=== PATIENT | female | born 1960 | race Caucasian/White ===

== ENCOUNTER 2020-06-16 16:00 | Outpatient (REF) | payer BC, SELFPAY ==
[2020-06-16 16:32] LABS: Glucose Urine UA NEG (NEG); Leukocyte Esterase Urine NEG (NEG); Nitrite Urine POS (NEG); PH 6.5 (5.0-8.0); Specific Gravity - Urine 1.025 (1.005-1.025); Urine Blood NEG (NEG); Urine Ketones NEG (NEG); Urine Protein NEG (NEG-TRACE)
[2020-06-16 16:33] LABS: Appearance Urine CLEAR; Color Urine YELLOW
[2020-06-16 16:39] LABS: Bacteria Urine 2+ /LPF; RBC Urine 0 /HPF (0); Squamous Epithelial Cell Urine 3+ /LPF; WBC Urine 0 /HPF (0-4)
== END 2020-06-16 16:01 | disposition home or self-care (01) ==
LOC: HO.LAB 16:00
PROVIDERS: PCP Internal Medicine; Visit Provider Internal Medicine
DX: R82.90 Unspecified abnormal findings in urine (principal); R30.0 Dysuria
CPT/HCPCS: 81001

== ENCOUNTER 2020-12-26 13:46 | Emergency (ER) | payer BC, SELFPAY ==
[2020-12-26 14:09] VITALS: BP 176/82; PULSE 132; RESP 22; TEMP 36.8; O2SAT 98; BMI 29.2
[2020-12-26 17:29] VITALS: BP 181/65; PULSE 122; RESP 16; TEMP 36.8; O2SAT 95
[2020-12-26 17:44] LABS: MANUAL DIFF FLAG NO
[2020-12-26 17:51] LABS: Basophils Percent Auto 0.2 % (0-2); Eosinophils Percent Auto 0.1 % (0-4); Hematocrit 45.2 % (37-47); Hemoglobin 14.7 g/dl (12.0-16.0); Imm Gran Abs Auto 0.04 X10*3/uL (0.00-0.03); Imm Gran Pct Auto 0.3 % (0.0-0.4); Lymphocytes Percent Auto 15.6 % (20-40); Mean Corpuscular HGB Conc 32.5 g/dl (31.0-35.0); Mean Corpuscular Hemoglobin 29.2 pg (27.0-33.0); Mean Corpuscular Volume 89.7 fL (80-98); Mean Platelet Volume 9.3 fL (9.4-12.3); Monocytes Absolute Auto 0.6 X10*3/uL (0.1-1.2); Monocytes Percent Auto 4.8 % (2-11); Platelet Count 297 X10*3/uL (160-400); Red Blood Count 5.04 X10*6/uL (4.20-5.50); Red Cell Distribution Width 12.7 % (11.0-16.0); White Blood Count 12.7 X10*3/uL (4.8-10.8)
[2020-12-26 18:07] LABS: Anion Gap 15 (12-20); Blood Urea Nitrogen 17 mg/dL (9-16); Calcium 10.2 mg/dL (8.4-10.2); Carbon Dioxide 20 mmol/L (22-29); Chloride 107 mmol/L (96-108); Creatinine Clr Calc Pharmacy 81.1; Estimated Glomerular Filt Rate > 60; Glucose Random 107 mg/dL (60-115); Sodium 138 mmol/L (135-145)
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
--- NOTE | 2020-12-26 19:24 | ECG_ITS ---
Test Reason : TACHY Blood Pressure : / mmHG Vent. Rate : 122 BPM Atrial Rate : 122 BPM P-R Int : 152 ms QRS Dur : 084 ms QT Int : 326 ms P-R-T Axes : 065 019 057 degrees QTc Int : 464 ms Sinus tachycardia Possible Left atrial enlargement Borderline ECG When compared with ECG of 07-FEB-2018 14:09, No significant change was found Referred By: Waleska Simpson Electronically Signed By:ELLIE FUNG MD
[2020-12-26 19:26] VITALS: BP 165/93; PULSE 137; RESP 16; TEMP 36.8; O2SAT 96
[2020-12-26 19:43] VITALS: BP 135/103; PULSE 121; RESP 14; TEMP 36.5; O2SAT 96
[2020-12-26] MEDS: LORazepam 1 MG TABLET PO (19:45)
[2020-12-26 19:50] LABS: Glucose Urine UA NEG (NEG); Leukocyte Esterase Urine NEG (NEG); Nitrite Urine NEG (NEG); PH 5.5 (5.0-8.0); Urine Blood NEG (NEG); Urine Ketones NEG (NEG); Urine Protein NEG (NEG-TRACE)
[2020-12-26 19:52] LABS: Appearance Urine CLEAR; Color Urine YELLOW
[2020-12-26 20:04] LABS: Ethanol < 10 mg/dL
--- NOTE | 2020-12-26 20:10 | PC.NURSE ---
Pt rang call avery to inform this RN that she feels anxious and believes her HR is elevated. Pt's HR is consistent in 120s, pt remains ST on cardiac specialist. Verbal reassurance provided. Pt agreeable to CT once ativan has taken effect.
[2020-12-26 20:13] LABS: Troponin-I High Sensitivity 4.3 ng/L (<3.5-17.0)
[2020-12-26 20:24] LABS: Amphetamine Screen Urine Not Detected (Not Detect); Barbiturates, Urine Not Detected (Not Detect); Benzodiazepines Screen Urine Not Detected (Not Detect); Cannabinoid Screen Urine Not Detected (Not Detect); Cocaine Screen Urine Not Detected (Not Detect); Opiate Screen Urine Not Detected (Not Detect); Phencyclidine Screen Urine Not Detected (Not Detect)
--- NOTE | 2020-12-26 20:25 | PC.NURSE ---
instructor of sociology came to this RN to report that the patient does not want the head CT. Provider aware and at bedside. Will update primary RN
[2020-12-26 20:31] VITALS: BP 163/67; PULSE 106; RESP 17; O2SAT 98
[2020-12-26] MEDS: LORazepam 0.5 MG TABLET PO (20:38)
--- NOTE | 2020-12-26 20:51 | PC.NURSE ---
Pt ambulatory with steady gait to bathroom prior to DC. Pt denies c/o dizziness at time of DC stating I only have a very small headache which this next dose of ativan might help but I have tylenol at home if not. Pt reports headache has decreased in severity since arrival and since receiving first dose of ativan. Pt expresses understanding of DC teaching and understands that provider and this RN recommend head CT which pt is refusing today.
== END 2020-12-26 20:42 | disposition home or self-care (01) ==
PROVIDERS: Nurse Practitioner Family; Emergency Provider Internal Medicine; PCP Internal Medicine
DX: F41.9 Anxiety disorder, unspecified (principal); F41.1 Generalized anxiety disorder; F43.0 Acute stress reaction; R11.10 Vomiting, unspecified; Z79.899 Other long term (current) drug therapy
CPT/HCPCS: 36415; 80048; 80307; 80320; 81003; 84484; 85025; 93005; 99284; 99285

== ENCOUNTER → 2021-03-23 13:44 | Outpatient (REF) | payer BC, SELFPAY ==
--- NOTE | 2021-03-23 13:48 | CA_ITS ---
Transthoracic Echocardiogram Patient (Last, First, Middle): Mishel Mcintyre Jean Gender: Female Date of : 1960 Age: 60 Procedure Date: 03/23/2021 Procedure Type: Transthoracic Echocardiogram Location: OP Height: 162.56 cm Weight: 77.11 kg BSA: 1.83 m2 Heart Rate: bpm BP: 120 / 86 mmHg [employer] Manager: MELL/KESHAWN Referring MD: Lars Morillo MD Electric Solderer: Loc Laughlin MD Symptoms: R00.0 - Tachycardia, unspecified Study Quality: Fair ECG Rhythm: Sinus Conclusions: - Essentially normal study Findings Left Ventricle Normal left ventricular size, thickness, and systolic function. The visually estimated ejection fraction is between 60-65%. Diastolic function is normal for age. Right Ventricle Normal right ventricular cavity size and systolic function. Atria Both atria are normal in size. There is no evidence of interatrial shunt. Aortic Valve Normal aortic valve structure and function. There is no aortic valve stenosis. There is no aortic valve regurgitation. Mitral Valve Normal mitral valve structure and function. There is trace mitral valve regurgitation. There is no mitral valve stenosis. Pulmonic Valve The pulmonic valve is likely normal. Tricuspid Valve Normal tricuspid valve structure. Tricuspid regurgitation envelope is inadequate for calculation of right ventricular systolic pressure. Great Vessels All visible segments of the aorta are normal in size. The pulmonary artery was not well visualized. Venous The inferior vena cava is normal in size and collapses greater than 50% with inspiration. Pericardium/Pleural There is no evidence of pericardial effusion. Prior Study Comparison Changes noted compared to prior study dated: 11/16/2016. LV diastolic function appears to be normal on this study Measurements 2D Linear Measurements IVSd: 0.95 0.6-0.9/0.6-1.0 cm LVIDd: 5.39 3.9-5.3/4.2-5.9 cm LVIDd Index: 2.95 2.4-3.2/2.2-3.1 cm/m2 LVIDs: 3.21 2.0-3.6 cm LVPWd: 0.83 0.7-1.1 cm Ao Root: 3.70 2.1-3.5 cm LA Diam: 3.40 2.7-3.8/3.0-4.0 cm LAIDs Index: 1.86 1.5-2.3 cm/m2 LV Mass: 220.81 67-162/88-224 g LV Mass Index: 120.66 43-95/49-115 g/m2 LVOT Diam: 2.10 3.0+(-)1.3 cm 2D Systolic Function EF 4C: 61.90 >55% EF 2C: 64.60 >55% EF BiP: 64.60 >55% Mitral Valve MV Pk E: 0.87 MV PK A: 0.71 MV Decel Time: 224.00 E/A: 1.20 E'Lateral: 8.70 E'Medial: 6.96 E/E' Med: 12.50 E/E' Lat: 10.00 PHT: 65.00 MVA PHT: 3.38 Decel [place]: 3.89 Aortic Valve AoV Pk [place]: 1.03 AoV Mn [place]iago: 0.75 AoV VTI: 0.19 AoV Pk Grad: 4.00 Aov Mn Grad: 3.00 RAFAEL Cont.VTI: 4.08 LVOT LVOT Pk [place]: 1.02 LVOT Mn [place]: 0.72 LVOT VTI: 0.22 LVOT Pk Grad: 4.00 LVOT Mn Grad: 2.00 LVOT Diam: 2.10 LVOT Area: 3.46 Diastolic Function MV Pk E: 0.87 MV Pk A: 0.71 E/A: 1.20 E'Medial: 6.96 E/E' Med: 12.50 E' Laterial: 8.70 E/E' Lat: 10.00 Tricuspid Valve RA Press: 3.00 Great Vessels Aorta Ao Root-2D: 3.70 2.0-3.7 cm Ao Asc: 3.70 2.1-3.4 cm Ao Arch: 2.60 Updated in Other Vendor System with Status of Final Loc Laughlin MD electronically signed on 03/24/2021 3:13:56 PM with status of Final
== END ==
LOC: HO.CARD 13:44
PROVIDERS: PCP Internal Medicine; Visit Provider Internal Medicine
DX: R00.0 Tachycardia, unspecified (principal)
CPT/HCPCS: 93306

== ENCOUNTER 2021-11-13 14:29 | Outpatient (REF) | payer BC, SELFPAY ==
[2021-11-13 14:50] LABS: MANUAL DIFF FLAG NO
[2021-11-13 15:22] LABS: Basophils Percent Auto 0.5 % (0-2); Eosinophils Absolute Auto 0.1 X10*3/uL (0.0-0.4); Eosinophils Percent Auto 1.2 % (0-4); Hematocrit 44.2 % (37.0-47.0); Hemoglobin 13.9 g/dl (12.0-16.0); Imm Gran Abs Auto 0.03 X10*3/uL (0.00-0.03); Imm Gran Pct Auto 0.3 % (0.0-0.4); Lymphocytes Absolute Auto 3.4 X10*3/uL (1.2-4.9); Lymphocytes Percent Auto 39.1 % (20-40); Mean Corpuscular HGB Conc 31.4 g/dl (31.0-35.0); Mean Corpuscular Hemoglobin 28.4 pg (27.0-33.0); Mean Corpuscular Volume 90.4 fL (80.0-98.0); Mean Platelet Volume 9.1 fL (9.4-12.3); Monocytes Absolute Auto 0.5 X10*3/uL (0.1-1.2); Monocytes Percent Auto 6.3 % (2-11); Neutrophils Absolute Auto 4.5 x10*3/uL (2.0-8.3); Neutrophils Percent Auto 52.6 % (45-73); Platelet Count 297 X10*3/uL (160-400); Red Blood Count 4.89 X10*6/uL (4.20-5.50); Red Cell Distribution Width 13.2 % (11.0-16.0); White Blood Count 8.6 X10*3/uL (4.8-10.8)
[2021-11-13 15:45] LABS: Alanine Aminotransferase 23 U/L (0-31); Albumin Level 4.1 g/dL (3.5-5.0); Alkaline Phosphatase 99 U/L (39-117); Anion Gap 12 (12-20); Aspartate Amino Transferase 16 U/L (5-31); Bilirubin Total 0.3 mg/dL (0.0-1.0); Blood Urea Nitrogen 10 mg/dL (9-16); Calcium 9.3 mg/dL (8.4-10.2); Carbon Dioxide 26 mmol/L (22-29); Chloride 107 mmol/L (96-108); Cholesterol 230 mg/dL; Estimated Glomerular Filt Rate > 60; Glucose Fasting 94 mg/dL (60-99); HDL Cholesterol 51 mg/dL; LDL Cholesterol Calculated 136 mg/dl; Sodium 141 mmol/L (135-145); Total Protein 7.6 g/dL (6.5-8.0); Triglycerides 216 mg/dL
[2021-11-13 16:06] LABS: Free T4 (Free Thyroxine) 1.08 ng/dL (0.71-1.85); Thyroid Stimulating Hormone 0.75 uIU/mL (0.32-4.0)
[2021-11-13 16:08] LABS: Appearance Urine CLEAR; Color Urine YELLOW; Glucose Urine UA NEG (NEG); Leukocyte Esterase Urine TRACE (NEG); Nitrite Urine NEG (NEG); PH 5.5 (5.0-8.0); Specific Gravity - Urine 1.025 (1.005-1.025); UACC Culture Trigger YES; Urine Blood NEG (NEG); Urine Ketones NEG (NEG); Urine Protein NEG (NEG-TRACE)
[2021-11-13 16:30] LABS: Bacteria Urine 4+ /LPF; RBC Urine 0 /HPF (0); Squamous Epithelial Cell Urine 1+ /LPF
== END 2021-11-13 14:30 | disposition home or self-care (01) ==
LOC: HO.LAB 14:29
PROVIDERS: PCP Internal Medicine; Visit Provider Internal Medicine
DX: I10 Essential (primary) hypertension (principal); R35.0 Frequency of micturition; E78.9 Disorder of lipoprotein metabolism, unspecified; E04.1 Nontoxic single thyroid nodule; E66.3 Overweight; R00.0 Tachycardia, unspecified; E78.5 Hyperlipidemia, unspecified; K21.9 Gastro-esophageal reflux disease without esophagitis
CPT/HCPCS: 36415; 80053; 80061; 81001; 81003; 84439; 84443; 85025; 87086; 87088; 87186

== ENCOUNTER 2022-03-19 | Outpatient (REF) | payer OTHER, SELFPAY | END 2022-03-19 00:01 | disposition home or self-care (01) | LOC: HO.LAB | PROVIDERS: PCP Internal Medicine; Visit Provider Internal Medicine | DX: Z13.89 Encounter for screening for other disorder (principal) ==

== ENCOUNTER 2022-03-29 11:55 | Outpatient (REF) | payer OTHER, SELFPAY ==
[2022-03-29 12:53] LABS: Appearance Urine CLEAR; Color Urine YELLOW; Glucose Urine UA NEG (NEG); Leukocyte Esterase Urine TRACE (NEG); Nitrite Urine NEG (NEG); UACC Culture Trigger NO; Urine Blood TRACE (NEG); Urine Ketones NEG (NEG); Urine Protein NEG (NEG-TRACE)
[2022-03-29 13:16] LABS: UACC CULT YES
[2022-03-29 13:17] LABS: Bacteria Urine 2+ /LPF; Squamous Epithelial Cell Urine 1+ /LPF
[2022-03-29 13:49] LABS: Alanine Aminotransferase 21 U/L (0-31); Albumin Level 4.1 g/dL (3.5-5.0); Alkaline Phosphatase 88 U/L (39-117); Anion Gap 12 (12-20); Aspartate Amino Transferase 14 U/L (5-31); Bilirubin Total 0.4 mg/dL (0.0-1.0); Blood Urea Nitrogen 10 mg/dL (9-16); Calcium 9.1 mg/dL (8.4-10.2); Carbon Dioxide 25 mmol/L (22-29); Chloride 106 mmol/L (96-108); Cholesterol 216 mg/dL; Estimated Glomerular Filt Rate > 60; Glucose Fasting 103 mg/dL (60-99); HDL Cholesterol 56 mg/dL; LDL Cholesterol Calculated 124 mg/dl; Potassium 4.1 mmol/L (3.3-5.1); Sodium 139 mmol/L (135-145); Triglycerides 182 mg/dL
[2022-03-29 14:11] LABS: TSH reflex Free T4 0.85 uIU/mL (0.32-4.0); Vitamin D 25-OH Total 16.3 ng/mL (>30)
== END 2022-03-29 11:56 | disposition home or self-care (01) ==
LOC: HO.LAB 11:55
PROVIDERS: Absent Provider Internal Medicine; PCP Internal Medicine; Visit Provider Internal Medicine
DX: R30.0 Dysuria (principal); E78.00 Pure hypercholesterolemia, unspecified; E55.9 Vitamin D deficiency, unspecified
CPT/HCPCS: 36415; 80053; 80061; 81001; 82306; 84443; 87086

== ENCOUNTER 2022-05-18 17:49 | Outpatient (REF) | payer OTHER, SELFPAY | END 2022-05-18 17:50 | disposition home or self-care (01) | LOC: HO.LNP 17:49 | PROVIDERS: Visit Provider Internal Medicine | DX: N39.0 Urinary tract infection, site not specified (principal); E04.1 Nontoxic single thyroid nodule | CPT/HCPCS: 87086; 87088; 87186 ==

== ENCOUNTER 2022-11-06 13:43 | Outpatient (REF) | payer OTHER, MEDICAID, SELFPAY ==
--- NOTE | ~2022-11-06 | US_ITS ---
EXAMINATION: US THYROID CLINICAL INFORMATION: Nontoxic single thyroid nodule. COMPARISON: Ultrasound thyroid 03/13/2012. TECHNIQUE: Linear transducer grayscale and color Doppler examination with attention to the region of the thyroid. FINDINGS: SIZE: Measurements of the thyroid lobes and nodules are given in sagittal, anteroposterior and transverse dimensions respectively. Right Thyroid Lobe: 6.0 x 3.5 x 3.4 cm, volume 37.1 mL. Previously 3.3 x 5.7 x 3.4 cm, volume 33.4 mL. Parenchyma: The gland echotexture is heterogeneous. Thyroid vascularity is normal. Left Thyroid Lobe: 4.7 x 1.6 x 1.4 cm, volume 5.6 mL. Previously 1.4 x 4.7 x 1.3 cm, volume 4.5 mL. Parenchyma: The gland echotexture is heterogeneous. Thyroid vascularity is normal. Isthmus: 0.48 cm in maximum AP dimension. Previously 0.30 cm. Estimated total number of nodules greater than or equal to 1 cm: 2. Bid Analyst nodules are described as follows: 1. Location: Isthmus. Size: 2.2 x 1.7 x 1.9 cm, volume 3.9 mL. Previously: Not documented on the previous study. Nodule characteristics: Composition: Solid/almost completely solid (2). Echogenicity: Hypoechoic (2). Shape: Not taller than wide (0). Margins: Smooth (0). Echogenic Foci: None (0). ACR TI-RADS total points: 4 ACR TI-RADS category: 4 2. Location: Right inferior/mid. Size: 3.9 x 3.4 x 3.4 cm, volume 23.4 mL. Previously: 3.2 x 3.7 x 3.0 cm, volume 18.6 mL. Nodule characteristics: Composition: Mixed cystic and solid (1). Echogenicity: Hypoechoic (2). Shape: Not taller than wide (0). Margins: Smooth (0). Echogenic Foci: Punctate echogenic foci (3). ACR TI-RADS total points: 6 ACR TI-RADS category: 4 Significant change in size (>/= 20% in 2 dimensions and minimal increase of 2 mm or 50% or greater increase in volume): No Change in features: No Change in ACR TI-RADS risk category: No 3. Location: Right mid. Size: 0.85 x 0.52 x 0.90 cm, volume 0.21 mL. Previously: Not documented on the previous study. Nodule characteristics: Composition: Spongiform (0). Echogenicity: Anechoic (0). Shape: Not taller than wide (0). Margins: Smooth (0). Echogenic Foci: None (0). ACR TI-RADS total points: 0 ACR TI-RADS category: 1 4. Location: Left mid. Size: 0.27 x 0.28 x 0.35 cm, volume 0.01 mL. Previously: Not documented on the previous study. Nodule characteristics: Composition: Cystic(0). ACR TI-RADS total points: 0 ACR TI-RADS category: 1 NODES: No lymphadenopathy is seen in the tissue surrounding the thyroid gland. US/US thyroid IMPRESSION: Multiple thyroid nodules with dominant nodules identified. Nodules #1 and #2 are both appropriate for fine-needle aspiration. The remaining demonstrated nodules are cystic and require no specific follow-up. ACR TI-RADS RECOMMENDATION REFERENCE: Ultrasound-guided fine-needle aspiration, followup ultrasound, no further follow up. * TR1 (0 point) and TR2 (2 points): No FNA or follow up. * TR3 (3 points): FNA if more than or equal to 2.5 cm in maximum dimension, followup ultrasound in 1, 3 and 5 years if 1.5 to 2.4 cm in maximum dimension. * TR4 (4-6 points): FNA if more than or equal to 1.5 cm in maximum dimension, followup ultrasound in 1, 2, 3 and 5 years if 1 to 1.4 cm in maximum dimension. * TR5 (more than or equal to 7 points): FNA if more than or equal to 1 cm in maximum dimension, followup ultrasound every year for 5 years if 0.5 to 0.9 cm in maximum dimension. * TR3, TR4 or TR5 nodules that are below the size threshold for followup receive no follow up.
== END 2022-11-06 13:44 | disposition home or self-care (01) ==
LOC: HO.HMGCX 13:43
PROVIDERS: PCP Internal Medicine; Visit Provider Internal Medicine
DX: E04.1 Nontoxic single thyroid nodule (principal)
CPT/HCPCS: 76536

== ENCOUNTER 2023-01-16 13:38 | Outpatient (REF) | payer OTHER, SELFPAY ==
[2023-01-16 17:07] LABS: Free T4 (Free Thyroxine) 0.99 ng/dL (0.71-1.85); Thyroid Stimulating Hormone 0.76 uIU/mL (0.32-4.0)
[2023-01-18 11:24] LABS: Triiodothyronine T3 Total 114 ng/dL (76-181)
[2023-01-18 22:04] LABS: Thyroid Peroxidase Antibodies 313 IU/mL (<9)
[2023-01-19 07:28] LABS: Thyroglobulin Antibodies >1000 IU/mL (< or = 1)
[2023-01-22 16:52] LABS: Thyrotropin Receptor Antibody <1.00 IU/L (<=2.00)
[2023-01-23 15:48] LABS: Thyroid Stimulating Immunoglob <89 % baseline (<140)
== END 2023-01-16 13:39 | disposition home or self-care (01) ==
LOC: HO.LAB 13:38
PROVIDERS: PCP Internal Medicine; Visit Provider Internal Medicine
DX: E04.2 Nontoxic multinodular goiter (principal)
CPT/HCPCS: 36415; 83520; 84439; 84443; 84445; 84480; 86376; 86800; 99202

== ENCOUNTER 2023-03-20 12:51 | Outpatient (REF) | payer OTHER, MEDICAID, SELFPAY ==
--- NOTE | ~2023-03-20 | CT_ITS ---
EXAMINATION: CT SOFT TISSUE NECK WITHOUT CONTRAST CLINICAL INFORMATION: Nontoxic multinodular goiter. COMPARISON: Thyroid ultrasound. TECHNIQUE: Multidetector helical imaging was performed in the axial plane without intravenous contrast. Multiple axial reformats and coronal/sagittal reconstructions were created the technologist workstation for review. This CT examination was performed using dose optimization techniques as appropriate, variously including the following: *Automated exposure control. *Adjustment of mA and/or kV according to patient size (this includes techniques or standardized protocols for targeted exams where dose is matched to indication/reason for exam; i.e. extremities or head). *Use of iterative reconstruction technique. DLP: 583 mGy-cm FINDINGS: Redemonstrated peripherally calcified heterogeneous largely cystic lesion along the inferior pole of the right thyroid lobe, measuring up to 4 x 3.2 x 2.8 cm. There is also a heterogeneously hypoattenuating lesion along the inferior aspect of the thyroid isthmus, measuring up to 1.7 x 1.5 x 1.9 cm. No significant cutaneous thickening or subcutaneous inflammation. No discrete fluid collection within the deep tissues of the neck. The premaxillary, retromaxillary, pterygopalatine fossa, orbital apical, parapharyngeal, and prelaryngeal adipose tissue is maintained. Normal appearance of the parotid, submandibular, and thyroid glands. Scattered subcentimeter lymph nodes bilaterally, none of which are pathologically enlarged. Normal mucosal contours of the pharynx and larynx. Normal appearance of the hyoid bone, thyroid cartilage, or cartilaginous trachea. The airways remains widely patent. No radiopaque foreign bodies. The atlantooccipital and atlantoaxial articulations remain well aligned. Mild reversal the normal cervical lordosis. Minimal degenerative anterolisthesis of C3 on C4. No evidence of acute fracture or subluxation of the cervical spine. The vertebral body heights are maintained. Moderate degenerative disc disease from C4-C7. Facet and uncovertebral joint arthropathy leads to osseous encroachment on the neural foramina from C3-C7. There is no prevertebral soft tissue swelling. The visualized portion of the skull base is without significant abnormalities. Mild mucosal thickening of the paranasal sinuses. The mastoid air cells and middle ear cavities are clear. No demonstrated significant periapical odontogenic disease. CT Upper Chest: The visualized lung apices and upper mediastinum are within normal limits. CT/CT soft tissue neck wo IV con IMPRESSION: 1. Redemonstrated 4 cm peripherally calcified heterogeneous lesion along the inferior pole of the right thyroid lobe. There is also a 1.9 cm heterogeneously hypoattenuating lesion along the inferior aspect of the thyroid isthmus. Recommend follow-up with fine-needle aspiration as recommended by prior ultrasound. 2. No additional focal lesion, collection, or pathologically enlarged lymphadenopathy within the soft tissues of the neck. 3. 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
[2023-03-20 15:38] LABS: Appearance Urine Cloudy; Color Urine Dark Yellow; Glucose Urine UA Negative (Negative); Leukocyte Esterase Urine Trace (Negative); Nitrite Urine Negative (Negative); PH 5.5 (5.0-9.0); Specific Gravity - Urine >= 1.030 (1.005-1.025); UMIC TRIGGER UACC YES; Urine Blood Negative (Negative); Urine Ketones Trace mg/dL (Negative); Urine Protein 30 (1+) mg/dL (Neg-Trace)
[2023-03-20 15:56] LABS: Bacteria Urine 1+ (None Seen); Hyaline Casts Urine 0-2 /LPF (0-2); RBC Urine 0-2 /HPF (0-2); WBC Urine 0-5 /HPF (0-5)
[2023-03-21 02:48] LABS: Alanine Aminotransferase 20 U/L (0-31); Albumin Level 3.8 g/dL (3.5-5.0); Alkaline Phosphatase 84 U/L (39-117); Anion Gap 14 (12-20); Aspartate Amino Transferase 22 U/L (5-31); Bilirubin Total 0.3 mg/dL (0.0-1.0); Blood Urea Nitrogen 22 mg/dL (9-16); Calcium 8.9 mg/dL (8.4-10.2); Carbon Dioxide 20 mmol/L (22-29); Chloride 109 mmol/L (96-108); Cholesterol 208 mg/dL; Estimated Glomerular Filt Rate > 60; Glucose Fasting 131 mg/dL (60-99); HDL Cholesterol 48 mg/dL; LDL Cholesterol Calculated 121 mg/dl; Potassium 4.5 mmol/L (3.3-5.1); Sodium 138 mmol/L (135-145); Total Protein 7.1 g/dL (6.5-8.0); Triglycerides 196 mg/dL
== END 2023-03-20 12:52 | disposition home or self-care (01) ==
LOC: HO.CT 12:51
PROVIDERS: Internal Medicine; Absent Provider Internal Medicine; PCP Internal Medicine; Visit Provider Internal Medicine
DX: E04.2 Nontoxic multinodular goiter (principal); E78.00 Pure hypercholesterolemia, unspecified
CPT/HCPCS: 36415; 70490; 80053; 80061; 81001

== ENCOUNTER 2023-03-25 13:06 | Outpatient (AMB) | payer OTHER, SELFPAY ==
[2023-03-25 13:17] VITALS: BP 140/90; PULSE 98; BMI 32.8
--- NOTE | 2023-03-25 13:17 | A.OFFVIS_ITS ---
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 Intake Note: NPV w/ EKG Establishment Guide Required: No Accompanied by: Self / Same As Patient Allergies No Known Allergies [No Known Allergies*] Allergy (Verified 03/25/23 13:19) Medication List - Last Reconciled 03/25/23 by Kei Kennedy MD albuterol sulfate 90 mcg/actuation (ProAir HFA) 2 puffs inhalation Q6H PRN fesoterodine ER (Toviaz) 4 mg PO DAILY fluticasone propionate 110 mcg/actuation (Flovent HFA) 1 puff inhalation BID lorazepam 1 mg PO BID PRN 30 days losartan 100 mg PO DAILY 90 days metoprolol tartrate 25 mg PO BID mirtazapine 15 mg PO BEDTIME 90 days omeprazole 40 mg PO DAILY 90 days ondansetron 4 mg PO Q8H PRN 15 days HPI HPI Comments History of Present Illness Details Mishel Taylor is here for consultation regarding palpitations. She states that she gets episodes of heart racing at random times. All times, that happens when she is anxious. However, she is not entirely sure if it is just anxiety if there is something else going on. Hence she has been referred. Otherwise, patient states that she lost her and he had lung cancer. After that, palpitations are worse. Patient has a lot of anxiety at baseline and hence not clear if her palpitations or if any arrhythmias. [facility] Medical History Anxiety Benign essential hypertension Dyslipidemia GERD (gastroesophageal reflux disease) Mixed hyperlipidemia Multinodular thyroid Overweight (BMI 25.0-29.9) Reactive airway disease Tachycardia Thyroid nodule Urinary frequency Surgical History History of kidney surgery History of surgery Family History Father CAD (coronary artery disease) CVD (cerebrovascular disease) Mother CVD (cerebrovascular disease) Diabetes Hypertension Maternal Grandmother Alzheimers disease Maternal Grandfather CAD (coronary artery disease) Paternal Grandmother CAD (coronary artery disease) Maternal Aunt Ovarian cancer Maternal Uncle Colon cancer Sister Kidney failure, acute Other Mental health problem Social History Housing: House Alcohol intake: current Alcohol intake frequency: holidays/special occasions only Patient Tobacco Use Status: Never used Tobacco e-Cigarette/Vaping Use: Never Used Second Hand Smoke Exposure: Yes service: No Current occupational status: employed 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 Cognitive needs: No Hearing needs: No Vision needs: Yes Review of Systems Const Denies chills, Denies daytime sleepiness, Denies fatigue, Denies fever(s), Denies frequent falls, Denies night sweats, Denies snoring, Denies weakness, Denies weight gain and Denies weight loss Eyes Denies loss of vision ENT Denies dizziness and Denies hearing loss Card Denies chest pain, Denies chest pain with activity, Denies syncope, Denies rapid heart rate, Denies edema, Denies claudication, Denies leg edema, Denies lightheadedness, Denies palpitations, Denies dyspnea, Denies dyspnea on exertion and Denies orthopnea Resp Denies cough, Denies excessive phlegm production, Denies dyspnea, Denies dyspnea on exertion, Denies snoring and Denies wheezing GI Denies abdominal pain, Denies hematochezia, Denies change in bowel habits, Denies change in stool character, Denies heartburn, Denies nausea and Denies vomiting Denies hematuria, Denies urinary frequency and Denies dysuria Musc Denies arthralgias, Denies muscle weakness, Denies numbness and Denies tingling Skin/Breast Denies nail changes and Denies rash Neuro Denies Abnormal speech present, Denies dizziness, Denies syncope, Denies frequent falls, Denies loss of vision, Denies memory loss, Denies numbness, Denies tingling and Denies weakness Psych Denies depression and Denies memory loss Endo Denies fatigue and Denies palpitations Aller/Immun Denies wheezing Physical Exam Vital Signs: Last Vital Signs Pulse 98 03/25/23 13:17 BP 140/90 H 03/25/23 13:17 BMI result Body Mass Index 32.8 Const General: comfortable and no acute distress Orientation/consciousness: patient oriented x3 HEENT Other: Unremarkable Head: Yes normal to inspection Neck Neck: Yes normal visual inspection Chest Chest palpation & inspection: normal inspection of the chest Resp Auscultation: clear to auscultation bilaterally Cardio Palpation: normal PMI Heart sounds: S1 normal heart sound present, S2 normal heart sound present, no gallops, no murmurs and no rubs GI Palpation (GI): Soft to palpation Back/Spine/Pelvis Other: unremarkable Skin General skin exam: no rashes or lesions noted Neuro General: patient oriented x3 Speech: No Abnormal speech present Extrem General: Yes normal to inspection Psych Mental Status: mental status grossly normal Office Procedures EKG Details: EKG with sinus rhythm at 98/Min; nonspecific ST-T changes; [place] [address]-[id number], Complete Assessment & Plan Assessment & Plan (1) Heart palpitations: Code(s): R00.2 - Palpitations (2) Tachycardia: Code(s): R00.0 - Tachycardia, unspecified (3) Benign essential hypertension: Code(s): I10 - Essential (primary) hypertension Plan We will do an echocardiogram and Holter for further evaluation. Based on vital signs, it seems she does have a lot of tachycardia. Not sure if it is all anxiety or arrhythmias. Holter should give us more information. Blood pressure is borderline high, but she states home blood pressures are much lower. Follow-up in a few weeks time. Orders: Orders CA echo transthoracic complete Today R00.0 - Tachycardia, unspecified ECG 7 day holter monitor Today R00.0 - Tachycardia, unspecified, R00.2 - Palpitations Medications: Changed From fesoterodine ER (Toviaz) 4 mg PO DAILY 90 days 90 tabs 1RF N32.81 - Overactive bladder To fesoterodine ER (Toviaz) 4 mg PO DAILY N32.81 - Overactive bladder Coding Level of Care Code New Pt Level 3 (62609) Diagnoses Heart palpitations R00.2 Tachycardia R00.0 Benign essential hypertension I10 CPT Codes EKG - CPT: 45578-[id number], Complete ([id number])
== END 2023-03-25 13:44 | disposition home or self-care (01) ==
PROVIDERS: Visit Provider Internal Medicine
DX: R00.2 Palpitations (principal); R00.0 Tachycardia, unspecified; I10 Essential (primary) hypertension
CPT/HCPCS: 93010; 99203; 99213

== ENCOUNTER → 2023-03-25 13:06 | Outpatient (BNVA) | payer OTHER, MEDICAID, SELFPAY | PROVIDERS: Visit Provider Internal Medicine | DX: R00.2 Palpitations (principal); R00.0 Tachycardia, unspecified; I10 Essential (primary) hypertension | CPT/HCPCS: 93005; 99202 ==

== ENCOUNTER → 2023-04-22 15:11 | Outpatient (REF) | payer OTHER, SELFPAY ==
--- NOTE | 2023-04-22 15:13 | HM_ITS ---
* Total monitoring time 4 days and 12 hours. * Underlying rhythm is sinus. Average ventricular rate 73/Min. Range 52 to 131/Min. * Very rare supraventricular ectopy. * No sustained arrhythmias. * No significant pauses or AV blocks. * No patient markers or events in diary. MTDD
== END ==
LOC: HO.CARD 15:11
PROVIDERS: PCP Internal Medicine; Visit Provider Internal Medicine
DX: R00.2 Palpitations (principal); R00.0 Tachycardia, unspecified
CPT/HCPCS: 93242

== ENCOUNTER → 2023-04-22 15:13 | Outpatient (BNV) | payer OTHER, SELFPAY | PROVIDERS: PCP Internal Medicine; Visit Provider Internal Medicine | DX: I47.1 Supraventricular tachycardia (principal) | CPT/HCPCS: 93244 ==

== ENCOUNTER 2023-06-23 17:18 | Emergency (ER) | payer OTHER, MEDICAID, SELFPAY ==
--- NOTE | ~2023-06-23 | XR_ITS ---
EXAMINATION: XR CHEST CLINICAL INFORMATION: Chest pain. COMPARISON: Soft tissue neck CT 03/20/2023. Chest x-ray 11/15/2016. TECHNIQUE: Frontal view of the chest was obtained. FINDINGS: The cardiomediastinal silhouette is within normal limits. No vascular congestion or edema. The lungs are well expanded. No consolidation or effusion. There is leftward deviation of the cervical trachea related to a thinly calcified nodule. On recent CT scan this is consistent with a peripherally calcified thyroid nodule. The radiographic appearance is unchanged. Degenerative changes in the shoulders. XR/XR chest 1V IMPRESSION: No acute cardiopulmonary findings.
--- NOTE | 2023-06-23 17:21 | ECG_ITS ---
Test Reason : CHEST PAIN Blood Pressure : / mmHG Vent. Rate : 120 BPM Atrial Rate : 120 BPM P-R Int : 162 ms QRS Dur : 072 ms QT Int : 326 ms P-R-T Axes : 050 -13 039 degrees QTc Int : 460 ms Poor data quality, interpretation may be adversely affected Sinus tachycardia Possible Left atrial enlargement Nonspecific ST and T wave abnormality Abnormal ECG When compared with ECG of 26-DEC-2020 19:42, ST more depressed Lateral leads Referred By: Generic ED Physician Electronically Signed By:LORETTA SOFIA MD
[2023-06-23 17:25] VITALS: BP 129/85; BP 135/87; PULSE 120; PULSE 147; RESP 18; TEMP 36.4; O2SAT 93; O2SAT 95; BMI 33.0
[2023-06-23 17:42] LABS: MANUAL DIFF FLAG NO
[2023-06-23 17:49] LABS: Basophils Percent Auto 0.4 % (0-2); Eosinophils Absolute Auto 0.1 X10*3/uL (0.0-0.4); Eosinophils Percent Auto 0.9 % (0-4); Hematocrit 41.4 % (37.0-47.0); Hemoglobin 13.3 g/dl (12.0-16.0); Imm Gran Abs Auto 0.01 X10*3/uL (0.00-0.03); Imm Gran Pct Auto 0.1 % (0.0-0.4); Lymphocytes Absolute Auto 2.7 X10*3/uL (1.2-4.9); Lymphocytes Percent Auto 35.4 % (20-40); Mean Corpuscular HGB Conc 32.1 g/dl (31.0-35.0); Mean Corpuscular Hemoglobin 28.1 pg (27.0-33.0); Mean Corpuscular Volume 87.5 fL (80.0-98.0); Mean Platelet Volume 8.9 fL (9.4-12.3); Monocytes Absolute Auto 0.6 X10*3/uL (0.1-1.2); Monocytes Percent Auto 7.7 % (2-11); Neutrophils Absolute Auto 4.2 x10*3/uL (2.0-8.3); Neutrophils Percent Auto 55.5 % (45-73); Platelet Count 239 X10*3/uL (160-400); Red Blood Count 4.73 X10*6/uL (4.20-5.50); Red Cell Distribution Width 13.1 % (11.0-16.0); White Blood Count 7.7 X10*3/uL (4.8-10.8)
[2023-06-23 17:56] LABS: Anion Gap 17 (12-20); Blood Urea Nitrogen 12 mg/dL (9-16); Calcium 9.6 mg/dL (8.4-10.2); Carbon Dioxide 20 mmol/L (22-29); Chloride 109 mmol/L (96-108); Creatinine Clr Calc Pharmacy 87.6; Estimated Glomerular Filt Rate > 60; Glucose Random 121 mg/dL (60-115); Potassium 3.5 mmol/L (3.3-5.1); Sodium 142 mmol/L (135-145)
--- NOTE | 2023-06-23 17:59 | PC.NURSE ---
Pt arrived via EMS, reporting she has been feeling sternal CP 2/10 for the past hour, radiating to her back between her shoulder blades 8/10. She is a/ox4, able to tolerate speaking full sentences on RA.
[2023-06-23 18:04] LABS: B Type Natriuretic Peptide < 10 pg/mL (<100)
[2023-06-23 18:07] LABS: Troponin-I High Sensitivity < 2.7 ng/L (<3.5-17.0)
--- NOTE | 2023-06-23 18:33 | ED.CHESTPAIN ---
HPI - Chest Pain General Chief Complaint: Chest Pain Stated Complaint: CHEST PAIN, NAUSEA Time Seen by Provider: 06/23/23 18:01 Source: patient Mode of arrival: EMS Limitations: no limitations History of Present Illness HPI narrative: Patient History of SVT, hypertension and increased stress and anxiety comes in for mid chest pain and scapular pain patient been having left interscapular pain since morning was going to the store prior to arrival walked about 30 yd and noticed palpitation with left-sided chest pain with slight nausea and shortness of heart rate was 150 when EMS reached was given asa patient takes metoprolol 25 mg twice daily which she has already taken today patient had previous echo was normal and Holter monitoring done 04/24 showed PACs Related Data Home Medications Medication Instructions Recorded Confirmed albuterol sulfate 90 mcg/actuation 2 puff inhalation Q6H PRN 08/23/20 03/25/23 aerosol inhaler (ProAir HFA) Shortness Of Breath fluticasone propionate 110 1 puff inhalation BID 08/23/20 03/25/23 mcg/actuation HFA aerosol inhaler (Flovent HFA) fesoterodine 4 mg tablet,extended 4 mg PO DAILY 03/25/23 03/25/23 release 24 hr (Toviaz) Previous Rx's Medication Instructions Recorded mirtazapine 15 mg tablet 15 mg PO BEDTIME 90 days #90 tabs 12/07/22 ondansetron 4 mg disintegrating 4 mg PO Q8H PRN nausea and 05/03/23 tablet vomiting 15 days #45 tabs losartan 100 mg tablet 100 mg PO DAILY 90 days #90 tabs 05/22/23 metoprolol tartrate 25 mg tablet 25 mg PO BID #180 tabs 05/22/23 omeprazole 40 mg capsule,delayed 40 mg PO DAILY 90 days #90 caps 05/29/23 release lorazepam 1 mg tablet 1 mg PO BID PRN anxiety 30 days 05/31/23 #60 tabs Allergies Allergy/AdvReac Type Severity Reaction Status Date / Time No Known Allergies Allergy Verified 06/23/23 17:30 [No Known Allergies*] Review of Systems Review of Systems: Yes all other systems are reviewed and are negative PMFSH Past Medical History Medical History Multinodular thyroid Mixed hyperlipidemia Tachycardia Overweight (BMI 25.0-29.9) Thyroid nodule Reactive airway disease Dyslipidemia Benign essential hypertension Urinary frequency Anxiety GERD (gastroesophageal reflux disease) Surgical History History of surgery History of kidney surgery Family History Family History Father CAD (coronary artery disease) CVD (cerebrovascular disease) Mother CVD (cerebrovascular disease) Diabetes Hypertension Maternal Grandmother Alzheimers disease Maternal Grandfather CAD (coronary artery disease) Paternal Grandmother CAD (coronary artery disease) Maternal Aunt Ovarian cancer Maternal Uncle Colon cancer Sister Kidney failure, acute Other Mental health problem Social History Social History Housing: House Alcohol intake: current Alcohol intake frequency: holidays/special occasions only Patient Tobacco Use Status: Never used Tobacco Smoked in Last 30 Days: No e-Cigarette/Vaping Use: Never Used Second Hand Smoke Exposure: Yes Advance Directives: No Advance Directives Information Provided: Yes service: No Current occupational status: employed 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 Oriented X3. No acute distress. ENT: Pharynx normal. Oral Mucosa moist Neck: Normal inspection. Neck supple. CVS: Normal heart rate and rhythm. Pulses normal. Respiratory: No respiratory distress. Equal air entry bilateral, no wheezing/rales/rhonchi tender left rhomboids Abdomen: Soft and nontender. Bowel sounds are present, Skin: Skin warm and dry. Normal skin color. Normal skin turgor. Extremities: No lower extremity edema. No calf tenderness Neuro: Oriented X 3. No motor deficit. Medications Administered Discontinued Medications Generic Name Dose Route Start Last Admin Trade Name Freq PRN Reason Stop Dose Admin Lorazepam 1 mg 06/23/23 18:45 06/23/23 19:22 Lorazepam 1 Mg Tablet PO 06/23/23 18:46 1 mg ONCE ONE Administration Medical Decision Making Medical Decision Making [facility] Narrative: Patient atypical chest pain 2 sets of cardiac enzymes negative EKG normal had a palpitation episode before the chest pain likely demand ischemia Differential Diagnosis Differential Diagnoses: The differential diagnosis associated with the presentation includes Unstable angina/ACS/chest pain/musculoskeletal pain/PE/demand ischemia Lab Data [facility] Lab Attestation statement: I reviewed the patient's lab results. 06/23/23 17:39 06/23/23 17:39 Labs: Lab Results 06/23/23 06/23/23 Range/Units 17:39 19:29 WBC 7.7 (4.8-10.8) X10*3/uL RBC 4.73 (4.20-5.50) X10*6/uL Hgb 13.3 (12.0-16.0) g/dl Hct 41.4 (37.0-47.0) % MCV 87.5 (80.0-98.0) fL MCH 28.1 (27.0-33.0) pg MCHC 32.1 (31.0-35.0) g/dl RDW 13.1 (11.0-16.0) % Plt Count 239 (160-400) X10*3/uL MPV 8.9 L (9.4-12.3) fL Immature Gran % (Auto) 0.1 (0.0-0.4) % Neut % (Auto) 55.5 (45-73) % Lymph % (Auto) 35.4 (20-40) % Stoddard % (Auto) 7.7 (2-11) % Eos % (Auto) 0.9 (0-4) % Baso % (Auto) 0.4 (0-2) % Lymph # (Auto) 2.7 (1.2-4.9) X10*3/uL Stoddard # (Auto) 0.6 (0.1-1.2) X10*3/uL Eos # (Auto) 0.1 (0.0-0.4) X10*3/uL Baso # (Auto) 0.0 (0.0-0.2) X10*3/uL Abs Immat Gran (auto) 0.01 (0.00-0.03) X10*3/uL Absolute Neuts (auto) 4.2 (2.0-8.3) x10*3/uL Absolute Nucleated RBC 0.000 (0.0-0.012) X10*3/uL Nucleated RBC % (auto) 0.0 (0.0-0.2) /100WBC Sodium 142 (135-145) mmol/L Potassium 3.5 D (3.3-5.1) mmol/L Chloride 109 H (96-108) mmol/L Carbon Dioxide 20 L (22-29) mmol/L Anion Gap 17 (12-20) BUN 12 (9-16) mg/dL Creatinine 0.73 (0.5-1.4) mg/dL Estim Creat Clear Calc 87.6 Estimated GFR > 60 Random Glucose 121 H (60-115) mg/dL Calcium 9.6 D (8.4-10.2) mg/dL Troponin I High Sens < 2.7 < 2.7 (<3.5-17.0) ng/L B-Natriuretic Peptide < 10 (<100) pg/mL Independent Interpretation I performed an independent interpretation of an: EKG Interpretation: Sinus tachycardia heart rate 120 beats per minute nonspecific ST T wave changes no acute ischemia Discharge Plan Discharge Clinical Impression: Chest pain, Nonsustained supraventricular tachycardia Patient Disposition: Home, Self-Care Instructions: Supraventricular Tachycardia (ED), Chest Pain (ED) Additional Instructions: Rest at home Medication for sleep and relaxation Continue taking your metoprolol for palpitations Follow-up with human resources operations specialist Prescriptions: No Action mirtazapine 15 mg tablet 15 mg PO BEDTIME 90 Days Qty: 90 1RF ondansetron 4 mg tablet,disintegrating 4 mg PO Q8H PRN (Reason: nausea and vomiting) 15 Days Qty: 45 2RF losartan 100 mg tablet 100 mg PO DAILY 90 Days Qty: 90 1RF metoprolol tartrate 25 mg tablet 25 mg PO BID Qty: 180 0RF omeprazole 40 mg capsule,delayed release(DR/EC) 40 mg PO DAILY 90 Days Qty: 90 1RF lorazepam 1 mg tablet 1 mg PO BID PRN (Reason: anxiety) 30 Days Qty: 60 0RF Flovent HFA 110 mcg/actuation HFA aerosol inhaler 1 puff inhalation BID albuterol sulfate [ProAir HFA] 90 mcg/actuation HFA aerosol inhaler 2 puff inhalation Q6H PRN (Reason: Shortness Of Breath) fesoterodine [Toviaz] 4 mg tablet extended release 24 hr 4 mg PO DAILY Interventions: ED Discharge Assessment Last Done: 06/23/23 20:40 Discharge Date/Time: 06/23/23 20:40
[2023-06-23] MEDS: LORazepam 1 MG TABLET PO (19:22)
[2023-06-23 19:23] VITALS: BP 111/76; PULSE 75; RESP 12; TEMP 36.6; O2SAT 94
--- NOTE | 2023-06-23 19:57 | PC.NURSE ---
Pt ca&ox4, no signs of distress. Pt sitting in bed watching tv. Plan of care ongoing.
[2023-06-23 20:00] LABS: Troponin-I High Sensitivity < 2.7 ng/L (<3.5-17.0)
--- NOTE | 2023-06-23 20:07 | PC.NURSE ---
Pt denies sob.
[2023-06-23 20:37] VITALS: BP 118/72; PULSE 72; RESP 16; O2SAT 98
--- NOTE | 2023-06-23 20:39 | PC.NURSE ---
Pt a&o, no sob or chest pain, Reviewed discharge instructions with pt. pt verbalized understanding, no sign of distress, Notified YASIR Nur
== END 2023-06-23 20:40 | disposition home or self-care (01) ==
PROVIDERS: Emergency Provider Internal Medicine; PCP Internal Medicine
DX: R07.89 Other chest pain (principal); F41.9 Anxiety disorder, unspecified; I47.10 Supraventricular tachycardia, unspecified; R06.02 Shortness of breath; Z79.899 Other long term (current) drug therapy
CPT/HCPCS: 36415; 71045; 80048; 83880; 84484; 85025; 93005; 99283; 99285

== ENCOUNTER 2023-07-15 10:44 | Outpatient (REF) | payer OTHER, MEDICAID, SELFPAY ==
--- NOTE | ~2023-07-15 | US_ITS ---
Ultrasound-guided thyroid nodule fine needle aspiration Indication: Isthmus thyroid nodule Right lobe mid/lower pole thyroid nodule Procedure: Informed consent was obtained from the patient prior to the procedure. During this process, the procedure and potential alternatives were explained, along with the intended outcome and benefits. The risks of the procedure, as well as the risks of not doing the procedure, were discussed. The patient was given the opportunity to ask questions regarding the procedure and appeared competent to make medical decisions. A signed consent form which documents this discussion was placed in the medical record. A timeout was performed in the room. The patient was placed in a supine position with the neck extended. The right side of the neck and chest was prepped and draped in routine sterile fashion. 1% lidocaine was used as anesthetic. Under real-time ultrasound guidance, a 25-gauge needle was placed into the isthmus nodule and aspiration was performed. A total of 4 aspirations were performed. The specimens were placed in CytoLyt and and the Affirma bottle. Next, under real-time ultrasound guidance, a 25-gauge needle was placed into the right mid/lower pole nodule. The wall of the nodule/cyst was heavily calcified. The majority of the nodule was cystic with minimal solid components available for aspiration. A total of 4 aspirations were performed. The specimens were placed in CytoLyt. Postprocedure images showed no hematoma. A Band-Aid was applied to the access site. The patient tolerated the procedure well with no immediate complications. Permanent ultrasound images were archived to the procedure. US/US biopsy thyroid Impression: Sound guided fine-needle aspiration of isthmus thyroid nodule and right lobe midpole thyroid nodule. The right mid/lower pole nodule is predominantly cystic with a calcified wall and minimal solid component. This procedure was performed by Macario Membreno PA-C, and directly supervised by Dr. Rascon
[2023-07-15] MEDS: Lidocaine HCl 1 % MPF 5 ML VIAL 10 ML SUBCUT (12:01)
== END 2023-07-15 10:45 | disposition home or self-care (01) ==
LOC: HO.US 10:44
PROVIDERS: PCP Internal Medicine; Visit Provider Internal Medicine Endocrinology, Diabetes & Metabolism
DX: E04.2 Nontoxic multinodular goiter (principal)
CPT/HCPCS: 10005; 88173; 88305

== ENCOUNTER → 2023-07-15 10:46 | Outpatient (BNV) | payer OTHER, SELFPAY | PROVIDERS: PCP Internal Medicine; Visit Provider Radiology Diagnostic Radiology | DX: E04.1 Nontoxic single thyroid nodule (principal) | CPT/HCPCS: 10005; 10006 ==

== ENCOUNTER 2023-08-16 13:21 | Outpatient (REF) | payer OTHER, SELFPAY ==
[2023-08-16 18:45] LABS: Appearance Urine Cloudy; Color Urine Yellow; Glucose Urine UA Negative (Negative); Leukocyte Esterase Urine Moderate (2+) (Negative); Nitrite Urine Negative (Negative); PH 5.5 (5.0-9.0); UMIC TRIGGER UACC YES; Urine Blood Negative (Negative); Urine Ketones Negative (Negative); Urine Protein Negative (Neg-Trace)
[2023-08-16 18:51] LABS: Bacteria Urine 4+ (None Seen); Hyaline Casts Urine 0-2 /LPF (0-2); RBC Urine 0-2 /HPF (0-2); UACC Culture Trigger YES; WBC Urine >50 /HPF (0-5)
== END 2023-08-16 13:22 | disposition home or self-care (01) ==
LOC: HO.LAB 13:21
PROVIDERS: PCP Internal Medicine; Visit Provider Internal Medicine
DX: R39.9 Unspecified symptoms and signs involving the genitourinary system (principal)
CPT/HCPCS: 81001; 87086; 87088; 87186

== ENCOUNTER 2023-10-07 13:57 | Outpatient (AMB) | payer OTHER, SELFPAY ==
[2023-10-07 14:00] VITALS: BP 144/100; PULSE 87; O2SAT 96
--- NOTE | 2023-10-07 14:00 | MHC.PC.OV ---
Vital Signs 10/07/23 14:00 Height 5 ft 4 in BP 144/100 H Blood Pressure Location Lt brachial Position Sitting Pulse 87 Pulse Source Pulse Oximeter Pulse Oximetry (%) 96 Oxygen Delivery Method Room Air Intake Visit Reasons: GERD/palpitations/anxiety, rescheduled from 07/08 Safety Security Officer Required: No Accompanied by: Self / Same As Patient Allergies No Known Allergies [No Known Allergies*] Allergy (Verified 10/07/23 15:12) Medication List - Last Reconciled 10/07/23 by Lars Morillo MD albuterol sulfate 90 mcg/actuation (ProAir HFA) 2 puffs inhalation Q6H PRN fesoterodine ER (Toviaz) 4 mg PO DAILY fluticasone propionate 110 mcg/actuation (Flovent HFA) 1 puff inhalation BID lorazepam 1 mg PO BID PRN 30 days losartan 100 mg PO DAILY 90 days metoprolol tartrate 25 mg PO BID mirtazapine 15 mg PO BEDTIME 90 days omeprazole 40 mg PO DAILY 90 days ondansetron 4 mg PO Q8H PRN 15 days Tobacco use date assessed: 10/07/23 Dental Screening Dental Screen Date: 10/07/23 Did you have a dental visit in the last 12 months?: Yes Did you have a dental problem in the last 6 months where you did not have access to dental care?: No Was dental information given to patient?: Patient has dentist HPI GERD/palpitations/anxiety, rescheduled from 07/08 HPI Details Patient comes in today for her follow up visit - she has not been seen since 01/11/2023 States that she continues to experience increased anxiety and feels like it has gotten worse lately States that she feels okay otherwise She denies any headaches or dizziness Denies any chest pains but continues to experience frequent sensations of her heart racing/beating fast - states that this has been going on for some time now Also relates (+) ORDAZ often No nausea/vomiting, no abdominal pain No change in bowel habits noted Needs her Mirtazapine Rx refilled She has not had any follow up labs done in a while now [facility] Medical History Multinodular thyroid Mixed hyperlipidemia Tachycardia Overweight (BMI 25.0-29.9) Thyroid nodule Reactive airway disease Dyslipidemia Benign essential hypertension Urinary frequency Anxiety GERD (gastroesophageal reflux disease) Surgical History History of surgery History of kidney surgery Family History Father CAD (coronary artery disease) CVD (cerebrovascular disease) Mother CVD (cerebrovascular disease) Diabetes Hypertension Maternal Grandmother Alzheimers disease Maternal Grandfather CAD (coronary artery disease) Paternal Grandmother CAD (coronary artery disease) Maternal Aunt Ovarian cancer Maternal Uncle Colon cancer Sister Kidney failure, acute Other Mental health problem Social History Housing: House Alcohol intake: current Alcohol intake frequency: holidays/special occasions only Patient Tobacco Use Status: Never used Tobacco e-Cigarette/Vaping Use: Never Used Second Hand Smoke Exposure: Yes service: No Current occupational status: employed 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 1. Little interest or pleasure in doing things: several days 2. Feeling down, depressed, or hopeless: several days 3. Trouble falling or staying asleep, or sleeping too much: several days 4. Feeling tired or having little energy: more than half the days 5. Poor appetite or overeating: more than half the days 6. Feeling bad about yourself - or that you are a failure or have let yourself or your family down: not at all 7. Trouble concentrating on things, such as reading the newspaper or watching television: several days 8. Moving or speaking so slowly that other people could have noticed. Or the opposite - being so fidgety or restless that you have been moving around a lot more than usual: several days 9. Thoughts that you would be better off or of hurting yourself in some way: not at all Total score: 9 Depression Screening Interpretation: Positive Depression Screening Follow-up: Existing condition and In treatment Depression Screening Done: Yes 71419 - PHQ-9 Billing: Yes Source: Developed by Drs. George Terry, Ashley B.Alex Bhat and colleagues, with an educational issa from [employer]. Thrive Questionnaire Date Thrive assessed: 10/07/23 I am a: Patient What is your living situation today?: I have a steady place to live Within the past 12 months, did the food you bought not last and you didn't have the money to get more?: Never true Within the past 12 months, did you worry whether your food would run out before you got money to buy more?: Never true Do you have trouble paying for medicines?: No Do you have trouble getting transportation to medical appointments?: No Do you have trouble paying your heating and electricity bill?: No Do you have trouble taking care of your child, family member or friend?: No Do you have trouble with day-to-day activities such as bathing, preparing meals, shopping, managing finances, etc.?: No Are you currently unemployed and looking for a job?: No Are you interested in more education?: No Please select the resources that you would like help with: None Currently or been in a relationship where the following occur: no concerns reported THRIVE Score: 0 AUDIT C Alcohol Use Questionnaire (AUDIT-C) 1. How often do you have a drink containing alcohol?: Never 3. How often do you have six or more drinks on one occasion?: Never Total Score: 0 Score Reviewed/Action Taken: Yes ANA-7 AMB Questionnaire ANA-7 Date ANA - 7 assessed: 10/07/23 Feeling nervous, anxious, or on edge: 1 = Several days Not being able to stop or control worryin = Several days Worrying too much about different things: 0 = Not at all Trouble relaxin = Several days Being so restless that it is hard to sit still: 1 = Several days Becoming easily annoyed or irritable: 0 = Not at all Feeling afraid as if something awful might happen: 1 = Several days Total ANA-7 score (0-4 normal; 5-9 mild; 10-14 moderate; 15-21 severe): 5 Source: Developed by Drs. Goerge Terry, Alex Bah and colleagues, with an educational issa from [employer]. Review of Systems Const Denies chills, Reports fatigue, Denies fever(s) and Denies headache(s) ENT Denies dysphagia, Denies dizziness, Denies otalgia, Denies headache(s), Denies neck pain, Denies odynophagia and Denies sore throat Card Denies chest pain, Reports rapid heart rate (better since started on Metoprolol), Denies palpitations and Reports dyspnea on exertion Resp Denies cough, Reports dyspnea on exertion and Denies wheezing GI Denies abdominal pain, Denies constipation, Denies dysphagia, Denies heartburn, Denies diarrhea, Denies nausea, Denies odynophagia and Denies vomiting Denies difficulty voiding, Reports nocturia, Denies dysuria (but (+) burning sensation or urination at times) and Denies urinary urgency Musc Denies back pain, Reports myalgias (on and off) and Denies neck pain Skin/Breast Denies rash Neuro Denies dizziness and Denies headache(s) Psych Reports anxiety Endo Reports fatigue and Denies palpitations Aller/Immun Denies wheezing Physical exam (Primary Care) Vital Signs: Last Vital Signs Pulse 87 10/07/23 14:00 BP 144/100 H 10/07/23 14:00 Pulse Ox 96 10/07/23 14:00 Oxygen Delivery Method Room Air 10/07/23 14:00 Tobacco/Smoking Status: Tobacco use Status Tobacco use date assessed 10/07/23 10/07/23 14:04 Patient Tobacco Use Status Never used Tobacco 10/07/23 14:02 e-Cigarette/Vaping Use Never Used 10/07/23 14:02 PHQ-9: PHQ-9 Score PHQ-9: Total score 9 10/27/23 23:21 Depression Screening Interpretation: Positive Depression Screening Follow-up: Existing condition and In treatment Thrive Assessment: Date of Thrive Assessment Date Thrive assessed 10/07/23 10/27/23 23:21 Currently or been in a relationship where the following occur: no concerns reported Const General: no acute distress and alert HENMT Ears: TM's normal bilaterally and EAC's normal Throat: Yes posterior oropharynx normal and Yes tonsils normal (no TP congestion noted) Neck Neck: Yes no lymphadenopathy and Yes supple Thyroid: Thyroid normal Resp Auscultation: clear to auscultation bilaterally, no rales and no wheezes Cardio Rate: tachycardic Rhythm: regular rhythm Heart sounds: no murmurs GI Palpation (GI): Soft to palpation and nontender Auscultation: normal bowel sounds General: Yes no CVA tenderness Back/Spine/Pelvis Back: no CVA tenderness Skin Rashes: no rashes Extrem General: Yes no clubbing, cyanosis or edema Assessment and Plan Assessment & Plan (1) Tachycardia: Code(s): R00.0 - Tachycardia, unspecified Plan: Continue Metoprolol 25 mg BID Will send patient for echocardiogram for further evaluation, especially since she has also been experiening on and off exertional dyspnea lately She had a CT angiogram of the chest and echocardiogram done back in 2020 that came out normal (2) Mixed hyperlipidemia: Code(s): E78.2 - Mixed hyperlipidemia Plan: She has not had her fasting lipid profile and labs rechecked since March 2022 Reinforced low cholesterol diet Will have patient recheck her labs and fasting lipids in 4 months for follow up She is reminded to get her follow up labs done before her next appointment in 4 months (3) Benign essential hypertension: Code(s): I10 - Essential (primary) hypertension Plan: Reinforced low sodium diet - goal is systolic BP of at least 120 to 130 mm or less Continue Losartan 100 mg QD; was also started on Metoprolol ER 25 mg BID previously but this is more to help regulate her heart rate (4) GERD (gastroesophageal reflux disease): Code(s): K21.9 - Gastro-esophageal reflux disease without esophagitis Qualifiers: Esophagitis presence: without esophagitis Qualified Code(s): K21.9 - Gastro-esophageal reflux disease without esophagitis Plan: Dietary restrictions reinforced Continue Omeprazole 40 mg once a day - symptoms have been better controlled on 40 mg but she still reports (+) frequent heartburns Due to the frequent recurrence of her symptoms despite PPI therapy as well as her recurrent nausea (which may be related), she was referred to GI for further evaluation and management and consideration for EGD but she missed her appt in December 2022 She is again advised to contact GI to reschedule her appt with them [place] (5) Reactive airway disease: Code(s): J45.909 - Unspecified asthma, uncomplicated Qualifiers: Asthma severity: moderate Asthma persistence: persistent Asthma complication type: uncomplicated Qualified Code(s): J45.40 - Moderate persistent asthma, uncomplicated Plan: Stable - has Flovent HFA but patient states that she has not been using it for a while now Has Albuterol HFA as her rescue inhaler - states that she uses this up to 4 times a day only when needed but has not had to do so often (6) Overactive bladder: Code(s): N32.81 - Overactive bladder Plan: Continue Fesoterodine ER 4 mg QD (7) Thyroid nodule: Code(s): E04.1 - Nontoxic single thyroid nodule Plan: Repeat thyroid US done in October 2022 revealed (+) multiple thyroid nodules with dominant nodules identified. Nodules #1 and #2 are both appropriate for fine-needle aspiration. The remaining demonstrated nodules are cystic and require no specific follow-up Follow up with endocrinology as scheduled (8) Anxiety: Code(s): F41.9 - Anxiety disorder, unspecified Plan: Continue Lorazepam 1 mg BID PRN, Mirtazapine 15 mg Q HS Will start her additionally on Bupropion XL 150 mg QD Follow-up with Psychiatry as scheduled (9) Overweight (BMI 25.0-29.9): Code(s): E66.3 - Overweight Plan: Reinforced diet/exercise as tolerated/lose weight Plan Follow up in 4 months Orders: Orders Comprehensive [place]. Panel Fast 4 Months E78.00 - Pure hypercholesterolemia, unspecified Lipid Panel 4 Months E78.00 - Pure hypercholesterolemia, unspecified UA CC w/rflx Micro + Cult 4 Months R30.0 - Dysuria Vitamin D 25-OH Total 4 Months E55.9 - Vitamin D deficiency, unspecified Complete Blood Count Auto Diff 4 Months D64.9 - Anemia, unspecified TSH reflex Free T4 4 Months E78.00 - Pure hypercholesterolemia, unspecified CA echo transthoracic complete 10/07/23 R06.09 - Other forms of dyspnea, R00.2 - Palpitations, R00.0 - Tachycardia, unspecified Medications: New bupropion HCl 150 mg PO QAM 30 tabs 3RF 30 days Refilled mirtazapine 15 mg PO BEDTIME 90 tabs 1RF 90 days F41.9 - Anxiety disorder, unspecified Coding Level of Care Code Est Pt Level 4 (02316) Diagnoses Tachycardia R00.0 Mixed hyperlipidemia E78.2 Benign essential hypertension I10 Gastroesophageal reflux disease without esophagitis K21.9 Esophagitis presence: without esophagitis Moderate persistent reactive airway disease without complication J45.40 Asthma severity: moderate Asthma persistence: persistent Asthma complication type: uncomplicated Overactive bladder N32.81 Thyroid nodule E04.1 Anxiety F41.9 Overweight (BMI 25.0-29.9) E66.3
== END 2023-10-07 15:24 | disposition home or self-care (01) ==
PROVIDERS: PCP Internal Medicine; Visit Provider Internal Medicine
DX: R00.0 Tachycardia, unspecified (principal); E78.2 Mixed hyperlipidemia; I10 Essential (primary) hypertension; K21.9 Gastro-esophageal reflux disease without esophagitis; J45.40 Moderate persistent asthma, uncomplicated; N32.81 Overactive bladder; E04.1 Nontoxic single thyroid nodule; F41.9 Anxiety disorder, unspecified; E66.3 Overweight
CPT/HCPCS: 99214

== ENCOUNTER 2023-11-08 14:43 | Outpatient (REF) | payer OTHER, SELFPAY ==
[2023-11-08 16:03] LABS: Appearance Urine Clear; Color Urine Yellow; Glucose Urine UA Negative (Negative); Leukocyte Esterase Urine Negative (Negative); Nitrite Urine Negative (Negative); PH 5.5 (5.0-9.0); Urine Blood Negative (Negative); Urine Ketones Negative (Negative); Urine Protein Negative (Neg-Trace)
== END 2023-11-08 14:44 | disposition home or self-care (01) ==
LOC: HO.LAB 14:43
PROVIDERS: PCP Internal Medicine; Visit Provider Internal Medicine
DX: R30.0 Dysuria (principal)
CPT/HCPCS: 81003

== ENCOUNTER 2023-12-10 14:25 | Outpatient (AMB) | payer OTHER, SELFPAY ==
[2023-12-10 14:26] VITALS: BP 112/74; PULSE 102
--- NOTE | 2023-12-10 14:26 | MHC.OFFVIS ---
Intake Vital Signs 12/10/23 14:26 Height 5 ft 4 in BP 112/74 Blood Pressure Location Lt brachial Position Sitting Pulse 102 H Pulse Source Pulse Oximeter Intake Visit Reasons: FNA Results Intake Note: Patient presents today for FNA results. Radiological Health Specialist Required: No Accompanied by: Self / Same As Patient Allergies No Known Allergies [No Known Allergies*] Allergy (Verified 12/10/23 14:32) Medication List - Last Reconciled 12/10/23 by George Downing MD albuterol sulfate 90 mcg/actuation (ProAir HFA) 2 puffs inhalation Q6H PRN bupropion HCl XL 150 mg PO QAM 30 days fesoterodine ER (Toviaz) 4 mg PO DAILY fluticasone propionate 110 mcg/actuation (Flovent HFA) 1 puff inhalation BID lorazepam 1 mg PO BID PRN 30 days losartan 100 mg PO DAILY 90 days metoprolol tartrate 25 mg PO BID mirtazapine 15 mg PO BEDTIME 90 days omeprazole 40 mg PO DAILY 90 days ondansetron 4 mg PO Q8H PRN 15 days HPI HPI Comments History of Present Illness Details 63 YO F with a PMHx of a multinodular thyroid who is seen in consultation for multinodular thyroid at the request of PCP.. Patient last saw Dr. Morel on 01/16/2023 Was initially diagnosed with multinodular thyroid many years ago. Had a recent ultrasound which demonstrated multiple later nodules. Currently denies any dysphagia or hoarseness of voice. Denies sensation of swelling in the neck or difficulty breathing while lying flat. She does report palpitations, tremors, anxiety, insomnia, frequent bowel movements and weight loss. Denies any history of head or neck irradiation. Denies any family history of thyroid cancer. Sister with a history of hyperthyroidism. Thyroid US: 11/06/2022 Right Thyroid Lobe: 6.0 x 3.5 x 3.4 cm, volume 37.1 mL. Previously 3.3 x 5.7 x 3.4 cm, volume 33.4 mL. Parenchyma: The gland echotexture is heterogeneous. Thyroid vascularity is normal. Left Thyroid Lobe: 4.7 x 1.6 x 1.4 cm, volume 5.6 mL. Previously 1.4 x 4.7 x 1.3 cm, volume 4.5 mL. Parenchyma: The gland echotexture is heterogeneous. Thyroid vascularity is normal. Isthmus: 0.48 cm in maximum AP dimension. Previously 0.30 cm. Estimated total number of nodules greater than or equal to 1 cm: 2. Parts Picker nodules are described as follows: 1.? Location: Isthmus. ?? ? Size: 2.2 x 1.7 x 1.9 cm, volume 3.9 mL. ?? ? Previously: Not documented on the previous study. ?? ? Nodule characteristics: ?? ? Composition: Solid/almost completely solid (2). ?? ? Echogenicity: Hypoechoic (2). ?? ? Shape: Not taller than wide (0). ?? ? Margins: Smooth (0). ?? ? Echogenic Foci: None (0).? ACR TI-RADS total points: 4 ?? ? ACR TI-RADS category: 4 2.? Location: Right inferior/mid. ?? ? Size: 3.9 x 3.4 x 3.4 cm, volume 23.4 mL. ?? ? Previously: 3.2 x 3.7 x 3.0 cm, volume 18.6 mL. ?? ? Nodule characteristics: ?? ? Composition: Mixed cystic and solid (1). ?? ? Echogenicity: Hypoechoic (2). ?? ? Shape: Not taller than wide (0). ?? ? Margins: Smooth (0). ?? ? Echogenic Foci: Punctate echogenic foci (3). ? ACR TI-RADS total points: 6 ?? ? ACR TI-RADS category: 4 ? Significant change in size (>/= 20% in 2 dimensions and minimal increase of 2 mm or 50% or greater increase in volume): No ?? ? Change in features: No ?? ? Change in ACR TI-RADS risk category: No 3.? Location: Right mid. ?? ? Size: 0.85 x 0.52 x 0.90 cm, volume 0.21 mL. ?? ? Previously: Not documented on the previous study. ?? ? Nodule characteristics: ?? ? Composition: Spongiform (0). ?? ? Echogenicity: Anechoic (0). ?? ? Shape: Not taller than wide (0). ?? ? Margins: Smooth (0). ?? ? Echogenic Foci: None (0).? ACR TI-RADS total points: 0 ?? ? ACR TI-RADS category: 1 4.? Location: Left mid. ?? ? Size: 0.27 x 0.28 x 0.35 cm, volume 0.01 mL. ?? ? Previously: Not documented on the previous study.? Nodule characteristics: ?? ? Composition: Cystic(0). ?? ? ACR TI-RADS total points: 0 ?? ? ACR TI-RADS category: 1 NODES: No lymphadenopathy is seen in the tissue surrounding the thyroid gland. Labs: Laboratory Tests 03/29/22 12:16 TSH 0.85 Status post FNA of isthmus nodule with benign cytology and right inferior nodule only contained cystic material [facility] Medical History Multinodular thyroid Mixed hyperlipidemia Tachycardia Overweight (BMI 25.0-29.9) Thyroid nodule Reactive airway disease Dyslipidemia Benign essential hypertension Urinary frequency Anxiety GERD (gastroesophageal reflux disease) Surgical History History of surgery History of kidney surgery Family History Father CAD (coronary artery disease) CVD (cerebrovascular disease) Mother CVD (cerebrovascular disease) Diabetes Hypertension Maternal Grandmother Alzheimers disease Maternal Grandfather CAD (coronary artery disease) Paternal Grandmother CAD (coronary artery disease) Maternal Aunt Ovarian cancer Maternal Uncle Colon cancer Sister Kidney failure, acute Other Mental health problem Social History Housing: House Alcohol intake: current Alcohol intake frequency: holidays/special occasions only Patient Tobacco Use Status: Never used Tobacco e-Cigarette/Vaping Use: Never Used Second Hand Smoke Exposure: Yes service: No Current occupational status: employed 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 The right low feels full to palpation Assessment & Plan Assessment & Plan (1) Multinodular thyroid: Code(s): E04.2 - Nontoxic multinodular goiter Plan: 63-year-old white female with a history of multinodular goiter Status post FNA of isthmus nodule with benign cytology and right inferior nodule only contained cystic material. Patient is clinically euthyroid Plan is to repeat TSH and free T4. Will also repeat thyroid ultrasound . I went over different options assuming the cyst has reaccumulated including redrainage, re-FNA with alcohol installation and right lobectomy. We will await follow-up ultrasound to discuss options which could also include just observation since cyst is been present since 1994 Orders: Orders Thyroid Stimulating Hormone Today E04.2 - Nontoxic multinodular goiter US thyroid Today E04.2 - Nontoxic multinodular goiter Free T4 (Free Thyroxine) Today E04.2 - Nontoxic multinodular goiter Coding Level of Care Code Est Pt Level 3 (55003) Diagnoses Multinodular thyroid E04.2
== END 2023-12-10 15:23 | disposition home or self-care (01) ==
PROVIDERS: PCP Internal Medicine; Visit Provider Internal Medicine Endocrinology, Diabetes & Metabolism
DX: E04.2 Nontoxic multinodular goiter (principal)
CPT/HCPCS: 99213

== ENCOUNTER → 2023-12-10 14:25 | Outpatient (BNVA) | payer OTHER, SELFPAY | PROVIDERS: PCP Internal Medicine; Visit Provider Internal Medicine Endocrinology, Diabetes & Metabolism | DX: E04.2 Nontoxic multinodular goiter (principal) | CPT/HCPCS: 99212 ==

== ENCOUNTER 2024-02-12 12:50 | Outpatient (REF) | payer OTHER, SELFPAY ==
[2024-02-12 13:01] LABS: MANUAL DIFF FLAG NO
[2024-02-12 14:05] LABS: Basophils Percent Auto 0.6 % (0-2); Eosinophils Absolute Auto 0.1 X10*3/uL (0.0-0.4); Eosinophils Percent Auto 1.3 % (0-4); Hematocrit 42.5 % (37.0-47.0); Hemoglobin 13.7 g/dl (12.0-16.0); Imm Gran Abs Auto 0.01 X10*3/uL (0.00-0.03); Imm Gran Pct Auto 0.1 % (0.0-0.4); Lymphocytes Percent Auto 43.6 % (20-40); Mean Corpuscular HGB Conc 32.2 g/dl (31.0-35.0); Mean Corpuscular Hemoglobin 28.5 pg (27.0-33.0); Mean Corpuscular Volume 88.4 fL (80.0-98.0); Mean Platelet Volume 9.1 fL (9.4-12.3); Monocytes Absolute Auto 0.5 X10*3/uL (0.1-1.2); Monocytes Percent Auto 7.2 % (2-11); Neutrophils Absolute Auto 3.2 x10*3/uL (2.0-8.3); Neutrophils Percent Auto 47.2 % (45-73); Platelet Count 248 X10*3/uL (160-400); Red Blood Count 4.81 X10*6/uL (4.20-5.50); Red Cell Distribution Width 13.2 % (11.0-16.0); White Blood Count 6.8 X10*3/uL (4.8-10.8)
[2024-02-12 14:06] LABS: Appearance Urine Turbid; Color Urine Yellow; Glucose Urine UA Negative (Negative); Leukocyte Esterase Urine Large (3+) (Negative); Nitrite Urine Negative (Negative); PH 5.5 (5.0-9.0); UMIC TRIGGER UACC YES; Urine Blood Small (1+) (Negative); Urine Ketones Negative (Negative); Urine Protein 30 (1+) mg/dL (Neg-Trace)
[2024-02-12 14:21] LABS: Bacteria Urine 3+ (None Seen); Hyaline Casts Urine 0-2 /LPF (0-2); RBC Urine 0-2 /HPF (0-2); UACC Culture Trigger YES; WBC Urine >50 /HPF (0-5)
[2024-02-12 14:48] LABS: Alanine Aminotransferase 16 U/L (0-31); Albumin Level 4.1 g/dL (3.5-5.0); Alkaline Phosphatase 88 U/L (39-117); Anion Gap 12 (12-20); Aspartate Amino Transferase 14 U/L (5-31); Bilirubin Total 0.4 mg/dL (0.0-1.0); Blood Urea Nitrogen 19 mg/dL (9-16); Calcium 9.4 mg/dL (8.4-10.2); Carbon Dioxide 24 mmol/L (22-29); Chloride 109 mmol/L (96-108); Cholesterol 213 mg/dL (<200); Estimated Glomerular Filt Rate > 60; Glucose Fasting 104 mg/dL (60-99); HDL Cholesterol 53 mg/dL (>40); LDL Cholesterol Calculated 123 mg/dL (<100); Sodium 141 mmol/L (135-145); Total Protein 7.3 g/dL (6.5-8.0); Triglycerides 187 mg/dL (<150)
[2024-02-12 15:05] LABS: TSH reflex Free T4 0.91 uIU/mL (0.32-4.0); Vitamin D 25-OH Total 18.4 ng/mL (>30)
== END 2024-02-12 12:51 | disposition home or self-care (01) ==
LOC: HO.LAB 12:50
PROVIDERS: PCP Internal Medicine; Visit Provider Internal Medicine
DX: E78.00 Pure hypercholesterolemia, unspecified (principal); E55.9 Vitamin D deficiency, unspecified; D64.9 Anemia, unspecified
CPT/HCPCS: 36415; 80053; 80061; 81001; 81003; 82306; 84443; 85025; 87086; 87088; 87186

== ENCOUNTER 2024-03-20 14:17 | Outpatient (AMB) | payer OTHER, SELFPAY ==
--- NOTE | 2024-03-20 15:37 | MHC.OFFVIS ---
Intake Visit Reasons: frequest UTI/ Recurrent UTI Intake Note: New Patient presents for initial visit for Recurrent uti Urology Medications: Fesoterodine Blood Thinner: none PVR: 0ml's Patient stated that she is having some Dysuria and bladder pressure and has had 5 uti's this year. Her last uti was 3 weeks ago and she was given IV antibiotics at [facility]. 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 Patient stated that she is having some Dysuria and bladder pressure and has had 5 uti's this year. Her last uti was 3 weeks ago and she was given IV antibiotics at [facility]. Discussed use of cranberry supplements, urinalysis trace leukocytes, bladder scan PVR 0 mL We will send urine for cytology, schedule renal ultrasound in follow-up office cystoscopy. [facility] Medical History Multinodular thyroid Mixed hyperlipidemia Tachycardia Overweight (BMI 25.0-29.9) Thyroid nodule Reactive airway disease Dyslipidemia Benign essential hypertension Urinary frequency Anxiety GERD (gastroesophageal reflux disease) Surgical History History of surgery History of kidney surgery Family History Father CAD (coronary artery disease) CVD (cerebrovascular disease) Mother CVD (cerebrovascular disease) Diabetes Hypertension Maternal Grandmother Alzheimers disease Maternal Grandfather CAD (coronary artery disease) Paternal Grandmother CAD (coronary artery disease) Maternal Aunt Ovarian cancer Maternal Uncle Colon cancer Sister Kidney failure, acute Other Mental health problem Social History Housing: House Alcohol intake: current Alcohol intake frequency: holidays/special occasions only Patient Tobacco Use Status: Never used Tobacco e-Cigarette/Vaping Use: Never Used Second Hand Smoke Exposure: Yes service: No Current occupational status: employed 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 Cognitive needs: No Hearing needs: No Vision needs: Yes Review of Systems Const All systems reviewed & are unremarkable except as noted in HPI and below Reports no additional complaints Eyes Reports no additional complaints ENT Reports no additional complaints Card Reports no additional complaints Resp Reports no additional complaints GI Reports no additional complaints Reports as per HPI Musc Reports no additional complaints Skin/Breast Reports system reviewed and no additional complaints, except as documented Neuro Reports no additional complaints Psych Reports no additional complaints Endo Reports no additional complaints Sanjay/Lymph Reports no additional complaints Aller/Immun Reports no additional complaints Physical Exam Const General: cooperative, healthy appearing and no acute distress Orientation/consciousness: patient oriented x3 HEENT Head: Yes normal to inspection, Yes normocephalic and Yes atraumatic Eyes Conjunctivae: conjunctivae normal Neck Neck: Yes normal visual inspection and Yes trachea midline Chest Chest palpation & inspection: normal inspection of the chest Resp Effort & Inspection: normal respiratory effort Cardio Jugular venous distension: no JVD GI Inspection: Yes normal to inspection Palpation (GI): Soft to palpation Neuro General: patient oriented x3 Psych Appearance: grossly normal Office Procedures Post Void Residual Post Residual Void Post Void Residual (PVR): 0 02230-Ipvt Void Residual by ultrasound Results AMB Urinalysis, Automated UA Leukoctes 15 Renata/uL Last Edit by [employer] on 03/20/24 15:57 UA Nitrite Negative Last Edit by [employer] on 03/20/24 15:57 UA Urobilinogen 0.2 mg/dL Last Edit by [employer] on 03/20/24 15:57 UA Protein 0 mg/dL Last Edit by [employer] on 03/20/24 15:57 UA pH 6.0 Last Edit by [employer] on 03/20/24 15:57 UA Blood 0 Jose/uL Last Edit by [employer] on 03/20/24 15:57 UA Specific [place] 1.020 Last Edit by [employer] on 03/20/24 15:57 UA Ketone Negative Last Edit by [employer] on 03/20/24 15:57 UA Bilirubin 0 mg/dL Last Edit by [employer] on 03/20/24 15:57 UA Glucose 0 mg/dL Last Edit by [employer] on 03/20/24 15:57 Results Reviewed Results Reviewed: Laboratory Last Values Urine pH (Auto) 6.0 03/20/24 15:56 Specific [place] (Auto) 1.020 03/20/24 15:56 Urine Protein (Auto) 0 mg/dL 03/20/24 15:56 Glucose (UA)(Auto) 0 mg/dL 03/20/24 15:56 Urine Ketones (Auto) Negative 03/20/24 15:56 Urine Blood (Auto) 0 Jose/uL 03/20/24 15:56 Urine Nitrite (Auto) Negative 03/20/24 15:56 Urine Bilirubin (Auto) 0 mg/dL 03/20/24 15:56 Urine Urobilinogen (Auto) 0.2 mg/dL 03/20/24 15:56 Leukocyte Esterase (Auto) 15 Renata/uL 03/20/24 15:56 Assessment & Plan Assessment & Plan (1) Recurrent urinary tract infection: Code(s): N39.0 - Urinary tract infection, site not specified Category: Medical (2) Dysuria: Code(s): R30.0 - Dysuria Category: Medical (3) Urinary frequency: Code(s): R35.0 - Frequency of micturition Category: Medical Plan Recommend cranberry supplements, Urine for cytology, renal ultrasound, follow-up office cystoscopy Orders: Orders AMB Urinalysis Automated 03/20/24 Z13.9 - Encounter for screening, unspecified Urine Culture 03/20/24 N39.0 - Urinary tract infection, site not specified Urine Cytology 03/20/24 N39.0 - Urinary tract infection, site not specified US renal BI 03/20/24 N39.0 - Urinary tract infection, site not specified AMB Post Void Residual by ultrasound 03/20/24 N39.0 - Urinary tract infection, site not specified Medications: New cranberry extract administer with meals 425 mg PO BID 60 caps 4RF Patient Instructions: The patient had an opportunity to ask questions regarding treatment plan. The patient expressed understanding and agreement with the above treatment plan. The patient is aware they should contact our office by phone for worsening of their current condition or the appearance of new symptoms. Compliance is encouraged with any medications and followup testing that is ordered. It is a privilege to be allowed the opportunity to participate in the urologic care of your patient. If you have any questions or concerns regarding treatment for the above conditions please do not hesitate to contact me. The office telephone contact is [phone]. This note is constructed in part using voice recognition software. While every effort has been made to ensure accuracy chemist biological errors may have been included. Yours sincerely, Beena Muniz MD Coding Level of Care Code New Pt Level 4 (30682) Diagnoses Recurrent urinary tract infection N39.0 Dysuria R30.0 Urinary frequency R35.0 CPT Codes Post Residual Void - PVR CPT Code: 01359-[id number] Void Residual by ultrasound ([id number])
== END 2024-03-20 16:16 | disposition home or self-care (01) ==
PROVIDERS: PCP Internal Medicine; Visit Provider Urology
DX: N39.0 Urinary tract infection, site not specified (principal); R30.0 Dysuria; R35.0 Frequency of micturition
CPT/HCPCS: 99204

== ENCOUNTER 2024-03-20 14:17 | Outpatient (REF) | payer OTHER, SELFPAY ==
[2024-03-20 16:58] LABS: Urine Cytology See Pathology rpt
== END 2024-03-20 14:18 | disposition home or self-care (01) ==
LOC: HO.LNP 14:17
PROVIDERS: PCP Internal Medicine; Visit Provider Urology
DX: N39.0 Urinary tract infection, site not specified (principal); R30.0 Dysuria; R39.89 Other symptoms and signs involving the genitourinary system
CPT/HCPCS: 51798; 81003; 87086; 88112; 99202

== ENCOUNTER → 2024-10-06 13:16 | Outpatient (BNVA) | payer MEDICARE, SELFPAY | PROVIDERS: PCP Internal Medicine; Visit Provider Internal Medicine | DX: J45.41 Moderate persistent asthma with (acute) exacerbation (principal); E78.2 Mixed hyperlipidemia; I10 Essential (primary) hypertension; K21.9 Gastro-esophageal reflux disease without esophagitis; E04.1 Nontoxic single thyroid nodule; N32.81 Overactive bladder; F41.9 Anxiety disorder, unspecified; E66.3 Overweight | CPT/HCPCS: 96127; 99212 ==

== ENCOUNTER 2025-01-05 15:32 | Outpatient (AMB) | payer MEDICARE, SELFPAY ==
[2025-01-05 15:33] VITALS: BP 118/72; PULSE 84; O2SAT 97
--- NOTE | 2025-01-05 15:33 | MHC.PC.OV ---
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 Accompanied by: Self / Same As Patient Allergies No Known Allergies [No Known Allergies*] Allergy (Verified 01/05/25 15:59) Medication List - Last Reconciled 01/05/25 by Lars Morillo MD albuterol sulfate 90 mcg/actuation (Ventolin HFA) 2 puffs inhalation Q6H PRN 30 days bupropion HCl XL 150 mg PO QAM 30 days cholecalciferol (vitamin D3) 50 mcg PO DAILY 90 days cranberry extract 425 mg PO BID fesoterodine ER (Toviaz) 4 mg PO DAILY fluticasone propionate 110 mcg/actuation 2 puffs inhalation BID 30 days lorazepam 1 mg PO BID PRN 30 days losartan 100 mg PO DAILY 90 days metoprolol tartrate 25 mg PO BID mirtazapine 15 mg PO BEDTIME 90 days omeprazole 40 mg PO DAILY 90 days ondansetron 4 mg PO Q8H PRN 15 days prednisone 4 tablets x 3 days, then 3 tablets x 3 days, then 2 tablets x 3 days, then 1 tablet x 3 days 12 days Tobacco use date assessed: 01/05/25 Dental Screening Dental Screen Date: 01/05/25 Did you have a dental visit in the last 12 months?: Yes Did you have a dental problem in the last 6 months where you did not have access to dental care?: No Was dental information given to patient?: Patient has dentist HPI Follow Up HPI Details inc R knee pain anterolateral x 6 weeks pain even when sitting, worse with weight and activity xray ordered Rx Ibuprofen 600 Zofran refill burning on urin x few weeks; urin freq U/A 3+ leucocytes labs not done yet [facility] Medical History Multinodular thyroid Mixed hyperlipidemia Tachycardia Overweight (BMI 25.0-29.9) Thyroid nodule Reactive airway disease Dyslipidemia Benign essential hypertension Urinary frequency Anxiety GERD (gastroesophageal reflux disease) Surgical History History of surgery History of kidney surgery Family History Father CAD (coronary artery disease) CVD (cerebrovascular disease) Mother CVD (cerebrovascular disease) Diabetes Hypertension Maternal Grandmother Alzheimers disease Maternal Grandfather CAD (coronary artery disease) Paternal Grandmother CAD (coronary artery disease) Maternal Aunt Ovarian cancer Maternal Uncle Colon cancer Sister Kidney failure, acute Other Mental health problem Social History Housing: House Alcohol intake: current Alcohol intake frequency: holidays/special occasions only Patient Tobacco Use Status: Never used Tobacco e-Cigarette/Vaping Use: Never Used Second Hand Smoke Exposure: Yes service: No Current occupational status: employed 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 1. Little interest or pleasure in doing things: several days 2. Feeling down, depressed, or hopeless: several days 3. Trouble falling or staying asleep, or sleeping too much: several days 4. Feeling tired or having little energy: more than half the days 5. Poor appetite or overeating: more than half the days 6. Feeling bad about yourself - or that you are a failure or have let yourself or your family down: not at all 7. Trouble concentrating on things, such as reading the newspaper or watching television: several days 8. Moving or speaking so slowly that other people could have noticed. Or the opposite - being so fidgety or restless that you have been moving around a lot more than usual: several days 9. Thoughts that you would be better off or of hurting yourself in some way: not at all Total score: 9 Depression Screening Interpretation: Positive Depression Screening Follow-up: Existing condition and In treatment Depression Screening Done: Yes 94328 - PHQ-9 Billing: Yes Source: Developed by Drs. George Terry, Ashley Morton, Alex Ramos and colleagues, with an educational issa from [employer]. Thrive Questionnaire Date Thrive assessed: 01/05/25 I am a: Patient What is your living situation today?: I have a steady place to live Within the past 12 months, did the food you bought not last and you didn't have the money to get more?: Never true Within the past 12 months, did you worry whether your food would run out before you got money to buy more?: Never true Do you have trouble paying for medicines?: No Do you have trouble getting transportation to medical appointments?: No Do you have trouble paying your heating and electricity bill?: No Do you have trouble taking care of your child, family member or friend?: No Do you have trouble with day-to-day activities such as bathing, preparing meals, shopping, managing finances, etc.?: No Are you currently unemployed and looking for a job?: No Are you interested in more education?: No Please select the resources that you would like help with: None Currently or been in a relationship where the following occur: No concerns reported THRIVE Score: 0 AUDIT C Alcohol Use Questionnaire (AUDIT-C) 1. How often do you have a drink containing alcohol?: Never 3. How often do you have six or more drinks on one occasion?: Never Total Score: 0 Score Reviewed/Action Taken: Yes ANA-7 AMB Questionnaire ANA-7 Date NAA - 7 assessed: 01/05/25 Feeling nervous, anxious, or on edge: 1 = Several days Not being able to stop or control worryin = Several days Worrying too much about different things: 0 = Not at all Trouble relaxin = Several days Being so restless that it is hard to sit still: 1 = Several days Becoming easily annoyed or irritable: 0 = Not at all Feeling afraid as if something awful might happen: 1 = Several days Total ANA-7 score (0-4 normal; 5-9 mild; 10-14 moderate; 15-21 severe): 5 Source: Developed by Drs. George Terry, Ashley Morton, Alex Ramos and colleagues, with an educational issa from [employer]. Physical exam (Primary Care) Vital Signs: Last Vital Signs Pulse 84 01/05/25 15:33 BP 118/72 01/05/25 15:33 Pulse Ox 97 01/05/25 15:33 Oxygen Delivery Method Room Air 01/05/25 15:33 Tobacco/Smoking Status: Tobacco use Status Tobacco use date assessed 01/05/25 01/05/25 15:40 Patient Tobacco Use Status Never used Tobacco 01/05/25 15:40 e-Cigarette/Vaping Use Never Used 01/05/25 15:40 PHQ-9: PHQ-9 Score PHQ-9: Total score 9 01/05/25 15:52 Depression Screening Interpretation: Positive Depression Screening Follow-up: Existing condition and In treatment Thrive Assessment: Date of Thrive Assessment Date Thrive assessed 01/05/25 01/05/25 15:40 Currently or been in a relationship where the following occur: No concerns reported Results AMB Urinalysis, Automated UA Leukoctes 3 Renata/uL Last Edit by Gretchen Sepulveda [facility] on 01/05/25 16:25 UA Nitrite Negative Last Edit by Gretchen Sepulveda [facility] on 01/05/25 16:25 UA Urobilinogen 0 mg/dL Last Edit by Gretchen Sepulveda [facility] on 01/05/25 16:25 UA Protein 0 mg/dL Last Edit by Gretchen Sepulveda [facility] on 01/05/25 16:25 UA pH 6.0 Last Edit by Gretchen Sepulveda [facility] on 01/05/25 16:25 UA Blood 0 Jose/uL Last Edit by Gretchen Sepulveda [facility] on 01/05/25 16:25 UA Specific [place] 1.015 Last Edit by Gretchen Sepulveda [facility] on 01/05/25 16:25 UA Ketone Negative Last Edit by Gretchen Sepulveda [facility] on 01/05/25 16:25 UA Bilirubin 0 mg/dL Last Edit by Gretchen Sepulveda [facility] on 01/05/25 16:25 UA Glucose 0 mg/dL Last Edit by Gretchen Sepulveda [facility] on 01/05/25 16:25 Coding Additional Codes PHQ-9 - 79322 - PHQ-9 Billing: Yes ([id number]) Assessment & Plan Assessment & Plan Orders: Orders AMB Urinalysis Automated Today Z13.9 - Encounter for screening, unspecified XR knee RT 4V Today M25.561 - Pain in right knee Urine Culture Today N39.0 - Urinary tract infection, site not specified Medications: New nitrofurantoin monohyd/m-cryst 100 mg (Macrobid) must administer with a meal/food 100 mg PO Q12H 14 caps 0RF 7 days ibuprofen 600 mg PO Q8H PRN 30 tabs 0RF pain Refilled ondansetron 4 mg PO Q8H PRN 45 tabs 2RF nausea and vomiting 15 days R11.0 - Nausea
== END 2025-01-05 16:12 | disposition home or self-care (01) ==
LOC: HO.HMCH 15:33
PROVIDERS: PCP Internal Medicine; Visit Provider Internal Medicine
DX: Z13.9 Encounter for screening, unspecified (principal)

== ENCOUNTER 2025-01-05 15:32 | Outpatient (REF) | payer MEDICARE, SELFPAY | END 2025-01-05 15:33 | disposition home or self-care (01) | LOC: HO.LNP 15:32 | PROVIDERS: PCP Internal Medicine; Visit Provider Internal Medicine | DX: M25.561 Pain in right knee (principal); N39.0 Urinary tract infection, site not specified; J45.40 Moderate persistent asthma, uncomplicated; E78.2 Mixed hyperlipidemia; I10 Essential (primary) hypertension; K21.9 Gastro-esophageal reflux disease without esophagitis; E04.1 Nontoxic single thyroid nodule; N32.81 Overactive bladder; F41.9 Anxiety disorder, unspecified; E66.3 Overweight; Z79.899 Other long term (current) drug therapy | CPT/HCPCS: 81003; 87086; 87088; 87186; 96127; 99212 ==